=== PATIENT | female | born 1985 | race Caucasian/White ===

== ENCOUNTER 2018-03-17 10:56 | Inpatient (IN) | payer OTHER ==
[2018-03-17] MEDS ORDERED: hydrOXYzine HCl 25 MG TAB PO ONE (12:41)
[2018-03-17 12:53] LABS: Urine Appearance CLEAR; Urine Bilirubin NEGATIVE (NEG); Urine Blood NEGATIVE (NEG); Urine Color YELLOW; Urine Glucose NEGATIVE (NEG); Urine Protein NEGATIVE (NEG)
[2018-03-17] MEDS ORDERED: hydrOXYzine HCl 25 MG TAB ONE (12:55)
[2018-03-17 13:05] LABS: Urine Microscopic Reflex ORDER UMIC
[2018-03-17 13:11] LABS: Urine Bacteria <20 /HPF (<20); Urine Culture Reflex Order REFLEXED; Urine RBC <5 /HPF (NONE SEEN)
[2018-03-17] MEDS ORDERED: METHYLERGONOVINE 0.2MG/ML AMP IM PRN (14:27)
[2018-03-17] MEDS ORDERED: CARBOPROST TROME 250 MCG/ML IM PRN (14:27)
[2018-03-17] MEDS ORDERED: Ringers Lactate 1,000 ML IV PRN (14:27)
[2018-03-17] MEDS ORDERED: PENICILLIN 5 MU in NA CHLORIDE 0.9% 100 ML IV ONE (14:30)
[2018-03-17] MEDS ORDERED: PENICILLIN G POT 5 MU/100 ML BAG IV ONE (14:46)
[2018-03-17] MEDS ORDERED: OXYTOCIN/LR 20 UNIT/1,000 ML BAG IV SCH (15:00)
[2018-03-17] MEDS ORDERED: PENICILLIN G POT 5 MU/100 ML IVPB IV SCH (15:00)
[2018-03-17] MEDS ORDERED: Ringers Lactate 1,000 ML IV SCH (15:00)
[2018-03-17] MEDS ORDERED: PENICILLIN 2.5 MU in NA CHLORIDE 0.9% 100 ML IV SCH (17:00)
[2018-03-17 17:05] LABS: RPR Titer ND
[2018-03-17 17:08] LABS: Absolute Lymphocytes (CBC) 0.9 K/uL (0.7-4.9); Absolute Monocytes 0.4 K/uL (0.1-1.3); Absolute Neutrophil 4.7 K/uL (1.8-8.0); Basophils % 0.3 % (0-1.3); Eosinophils % 0.4 % (0-4.4); Hematocrit 31.8 % (36.0-45.0); Lymphocytes % 14.3 % (15.3-44.8); MCV 84.6 fL (80-100); Monocytes % 6.7 % (3.3-12.3); RBC Red Blood Cell Count 3.76 M/uL (3.86-4.86)
[2018-03-17 17:47] VITALS: BMI 20.6
[2018-03-17] MEDS ORDERED: BUTORPHANOL 1 MG/ML INJ IV PRN (19:00)
[2018-03-17] MEDS ORDERED: PROMETHAZINE 25 MG/ML VIAL IV PRN (19:01)
[2018-03-17] MEDS ORDERED: LIDOCAINE 2% INJ, 20 mL 20 ML ONE (20:48)
[2018-03-17] MEDS ORDERED: INFLUENZA VACCINE (for 3y+) 0.5 ML DOSE IMVAC ONE (21:00)
[2018-03-17] MEDS ORDERED: METHYLERGONOVINE 0.2 MG TAB PO PRN (21:13)
[2018-03-17] MEDS ORDERED: ONDANSETRON 4 MG (ODT) TAB PO PRN (21:13)
[2018-03-17] MEDS ORDERED: Oxycodone HCl/Acetaminophen 1 TAB TAB PO PRN ×2 (21:13)
[2018-03-17] MEDS ORDERED: ACETAMINOPHEN 500 MG TAB PO PRN (21:13)
[2018-03-17] MEDS ORDERED: DOCUSATE NA/SENNA CONC 1 TAB PO PRN (21:13)
[2018-03-17] MEDS ORDERED: BISACODYL 10 MG RECTAL SUPP RECT PRN (21:13)
--- NOTE | 2018-03-17 21:17 | P.OP ---
Date of Service: 03/17/18 Findings and Operative Technique Patient delivered a viable male in cephalic presentation on 03/17/18 at 20:46 over a midline episiotomy with a cord around the body x1. Once was delivered nose and mouth were suctioned with a suction bulb and cord was clamped and cut. was then placed on mother's abdomen for skin to skin bonding. Placenta was then delivered with gentle traction. Placenta was noted to be intact. Attention was turned to the midline episiotomy which was repaired with a 2.0 vicryl in usual fashion. Patient tolerated procedures well. APGARS 9/ 9. Weight 6 lb 15 oz. First stage 4 hours 53 min. Second stage 8 minutes. Both mom and baby are doing well.
[2018-03-18 01:53] LABS: RPR (Rapid Plasma Reagin) NON-REACT (NON-REACT)
--- NOTE | 2018-03-18 03:05 | HP ---
Date of Admission: 03/17/2018 History Of Present Illness: Victoria is a 32-year-old, 2, para 1-0-0-1, who presents at 38 wee ks gestation in early labor. The patient has been having contractions all night, and they have worse praveena upon presentation. She is omega every 2 to 5 minutes. The patient has no leakage of fluid , no vaginal bleeding. She reports good movement. She has obtained care with [facility] at 7 weeks gestation. care has been complicated by low weight gain during this pregna ncy and her having a low starting BMI of less than 16.5 in the first trimester. The patient has been followed with [facility] as well and had her last ultrasound performed on February 04. Ultrasound revea led cephalic presentation with the growth of 68 percentile. The patient had a group B strep swab per formed on February 26 which is GBS positive. Medical History: Negative. Past Surgical History: None. Ob History: Positive for 1 prior vaginal in 2010, female infant, 7 pounds 1 ounce. Social History: No tobacco, alcohol, or drug use. She is with the father of the baby. Physical Examination: Vital Signs: On admission, blood pressure 130/78, pulse of 65, respirations 18, temperature 98.4. P ain scale, she states her contractions are 8/10 in severity. General: The patient in bed with mild to moderate distress. Head and Neck: Normocephalic, atraumatic. Neck is supple. Respirations: Symmetric, nonlabored breathing. Cardiovascular: Regular rate and rhythm. No edema bilaterally. Abdomen: Gravid. Vaginal: Normal external female genitalia. Vagina is pink, moist. No fluid noted in the vaginal va ult. Cervical: 1 to 2 cm dilated, 50% effaced, -3 station. Vertex presentation. heart rate monito ring category 2 tracing. Baseline heart rate is 125. Killian contractions noted, irregular. GBS positive. Laboratory Data: Results are still pending. Assessment: Victoria is a 32-year-old, 2, para 1-0-0-1, at 38 weeks gestation in labor. Plan: Admit the patient. Start penicillin for GBS prophylaxis. Pitocin for labor augmentation. We will perform rupture of membranes once penicillin has been given. Anticipate vaginal . /MODL Voice ID: [id number]
[2018-03-18 05:10] LABS: Absolute Lymphocytes (CBC) 1.1 K/uL (0.7-4.9); Absolute Monocytes 0.9 K/uL (0.1-1.3); Absolute Neutrophil 9.7 K/uL (1.8-8.0); Basophils % 0.4 % (0-1.3); Eosinophils % 0.2 % (0-4.4); Hematocrit 30.1 % (36.0-45.0); Lymphocytes % 9.4 % (15.3-44.8); MCH 29.7 pg (27.0-35.0); MCV 83.8 fL (80-100); Monocytes % 7.7 % (3.3-12.3)
[2018-03-18] MEDS: IBUPROFEN 200 MG TAB PO PRN (13:45)
--- NOTE | 2018-03-18 22:40 | P.PN ---
Date of Service: 03/18/18 Patient is doing well on PP day 1 after vaginal . Bonding well with baby. No issues. Breast feeding without issues. Selected Entries 03/18/18 07:55 Temperature 98.9 F Pulse Rate 62 Respiratory 18 Rate Blood Pressure 124/75 Pain Level 0 Laboratory Tests 03/17/18 03/18/18 14:35 04:37 WBC 6.0 11.8 H D Hgb 11.3 L 10.7 L Hct 31.8 L 30.1 L Plt Count 152 171 GEN: resting comfortably in bed. Head/Neck: NCAT, supple Resp: symmetric non-labored breathing ABD: soft, non-tender, non-distended; fundus firm. 32 y/o s/p vaginal delivery, doing well, afebrile - d/c home tomorrow
[2018-03-19] MEDS ORDERED: Ringers Lactate 1,000 ML IV ONE (04:26)
[2018-03-19] MEDS: IBUPROFEN 200 MG TAB PO PRN (05:11)
[2018-03-19 10:41] VITALS: BP 121/73; TEMP 97.7
[2018-03-20 13:46] LABS: HBsAG Nonreactive (Nonreactive)
--- NOTE | 2018-03-20 23:32 | P.DS ---
Admission Date: 03/17/18 Discharge Date: 03/19/18 Disposition: ROUTINE DISCHARGE Discharge Condition: GOOD Brief History of Present Illness: See h&p Hospital Course: Patient did well in the post period. She is tolerating regular diet. She is ambulating well. No issues. No fever. No chills. Vital Signs/Physical Exam: Temp Pulse Resp BP Pulse Ox 97.7 F 82 18 121/73 03/19/18 08:10 03/19/18 08:10 03/19/18 08:10 03/19/18 08:10 General: Alert, In no apparent distress HEENT: Atraumatic Neck: Supple Respiratory: Normal air movement Cardiovascular: No edema, Normal pulses, Regular rate/rhythm Gastrointestinal: Soft and benign (Fundus firm palpable below umbilicus) Musculoskeletal: No clubbing, No swelling Integumentary: No rashes Laboratory Data at Discharge: WBC 11.8 K/uL (4.3-10.9) H D 03/18/18 04:37 Hgb 10.7 g/dL (12.0-15.0) L 03/18/18 04:37 Hct 30.1 % (36.0-45.0) L 03/18/18 04:37 Plt Count 171 K/uL (152-406) 03/18/18 04:37 Home Medications: Pnv 112/Iron/FA/Om-3S/Dha/Epa [Vitafol Gummies] 1 tab PO DAILY 03/17/18 Diet: Regular Activity: No lifting more than 10 lbs
== END 2018-03-19 10:45 | disposition home or self-care (01) | DRG 807 ==
LOC: L&D 10:56 → 2ND-WC 13:44
PROVIDERS: ADMIT Student in an Organized Health Care Education/Training Program; ATTEND Student in an Organized Health Care Education/Training Program
PROC: 10E0XZZ Delivery of Products of Conception, External Approach (ICD-10-PCS; principal; 2018-03-17)
PROC: 3E033VJ Introduction of Other Hormone into Peripheral Vein, Percutaneous Approach (ICD-10-PCS; 2018-03-17)
PROC: 10907ZC Drainage of Amniotic Fluid, Therapeutic from Products of Conception, Via Natural or Artificial Opening (ICD-10-PCS; 2018-03-17)
PROC: 0W8NXZZ Division of Female Perineum, External Approach (ICD-10-PCS; 2018-03-17)
DX: O99.824 Streptococcus B carrier state complicating childbirth (principal); Z37.0 Single live birth; Z3A.38 38 weeks gestation of pregnancy; O69.82X0 Labor and delivery complicated by other cord entanglement, without compression, not applicable or unspecified
CPT/HCPCS: 36415; 81003; 81015; 85025; 86592; 86900; 86901; 87086; 87088; 87340; 99218; J0595; J2210; J2550; J2590

== ENCOUNTER 2018-08-01 14:58 | Observation (INO) | payer OTHER, SELFPAY ==
[2018-08-01] MEDS ORDERED: ONDANSETRON 4 MG/2 ML VIAL IV PRN (15:23)
[2018-08-01] MEDS ORDERED: ACETAMINOPHEN 650MG/RECT SUPP PR PRN (15:23)
[2018-08-01] MEDS: NA CHLORIDE 0.9% 1,000 ML IV SCH ×2 (15:57→22:30)
[2018-08-01] MEDS: CEFTRIAXONE/SWI 1gm 1 GM/10 ML SYR IVP SCH (16:02)
[2018-08-01] MEDS ORDERED: PROPOFOL 200 MG/20 ML VIAL IV ONE (16:32)
[2018-08-01] MEDS ORDERED: FENTANYL CITR 100 MCG/2 ML ONE (16:32)
[2018-08-01] MEDS ORDERED: LIDOCAINE 2% MPF 5 ML VIAL ONE (16:33)
[2018-08-01] MEDS ORDERED: BSS OPTHALMIC SOL 15 ML BOT OPTH ONE (16:34)
[2018-08-01] MEDS ORDERED: Ringers Lactate 1,000 ML IV ONE (16:35)
[2018-08-01] MEDS ORDERED: KETOROLAC 30 MG/ML INJ ONE (16:51)
[2018-08-01] MEDS ORDERED: ONDANSETRON 4 MG/2 ML VIAL ONE (16:51)
--- NOTE | 2018-08-01 17:20 | RAD REPORT ---
EXAM DESCRIPTION: RAD - Urethrocystogrphy Retrograde - 08/01/2018 5:13 pm CLINICAL HISTORY: Left ureteral stent placement COMPARISON: None. FINDINGS: There were 23 images obtained during fluoroscopic assisted placement of a left ureteral stent. Images show stepwise placement of the stent. No suspicious or unexpected finding. Fluoro time was 2.7 minutes. IMPRESSION: Fluoroscopic assisted placement of left ureteral stent as detailed.
[2018-08-01 18:25] VITALS: BMI 17.9
--- NOTE | 2018-08-01 21:33 | CON ---
Subjective: This is a pleasant 33-year-old female, related to Dr. Ruiz from the ER, who went to [facility] the [facility] for left flank pain that started with one day's duration. The pain was severe enough, 10/10, brought to the emergency room. She also had been having some nausea and vomiting. At office, she got a CAT scan revealing a 5 mm distal left urolithiasis with dilation of the left collecting system. She also has a small stone noted in the midportion of the left kidney. The liver, spleen, pancreas, right kidney, and adrenal glands are all normal. Gallbladder was normal. The uterus was retroflexed, measuring 8.5 cm in length. This patient never had kidney stones before. She does not drink a lot of water and she takes vitamins. She has a young baby borned 02/2018 that is been breast fed. Past Medical History: None. Medications: None. Surgeries: None. Allergies: NONE. Social History: No smoking. No tobacco use. No IV drug use. No illicit drug use. Review of Systems: Ten point review of systems otherwise normal. Physical Examination: Vital Signs: Afebrile. Stable. General: The patient was curled up in bed, lying on her left side, trying to feel more comfortable. Her was present with her mother and her father- in-law. HEENT: Atraumatic, normocephalic. Lungs: Clear. Heart: Regular rate and rhythm. Abdomen: Soft, nontender. Extremities: Normal range of motion. Imaging Data: CT scan results, as mentioned above. Laboratory Data: Laboratory from [facility] reveals sodium 143, potassium 3.5, CO2 28, chloride 105, glucose 82, calcium 9.7, BUN 14, creatinine 0.9. LFTs normal. test is negative. UA shows specific gravity 1.030, blood large, pH 6.0, urobilinogen 0.2, leukocyte negative. CBC; white count 4.9, H and H are 13 and 36.6, platelet 330. Assessment: A 5 mm distal left ureteral stone. Plan: Plan is for cystoscopy, left retrograde pyelogram, balloon dilation of the ureter, ureteroscopy, stone basket, possible lithotripsy, stent placement. The patient was given all the general information, alternatives, and risks with the nurse present. She was not coerced. She was voluntarily giving informed consent and she understands everything that is going on. She wishes to proceed. FRANKLIN/JESUS Voice ID: [id number] Report ID: [id number] MTDD
[2018-08-01 23:07] LABS: Urine Appearance CLOUDY; Urine Bilirubin NEGATIVE (NEG); Urine Blood 3+ (NEG); Urine Color YELLOW; Urine Glucose NEGATIVE (NEG); Urine Protein 2+ (NEG); Urine Specific Gravity 1.015 (1.005-1.030); Urine Urobilinogen 0.2 mg/dL (0.2-1.0)
[2018-08-01 23:12] LABS: Urine Microscopic Reflex ORDER UMIC
[2018-08-02 00:17] LABS: Urine Bacteria <20 /HPF (<20); Urine Culture Reflex Order NOT NEEDED; Urine RBC >50 /HPF (NONE SEEN)
--- NOTE | 2018-08-02 03:35 | HP ---
Date of Admission: 08/01/2018 Chief Complaint: Direct admission from the [place] ER for kidney stone and left flank pain. History Of Present Illness: The patient is a 33-year-old female with no significant past medical his tory, who had a left lower quadrant abdominal pain along with some cramping. The patient was on her menstrual cycle and felt that this was initially due to her cycle, however, continued to have pain an d therefore came into the [place] ER for further evaluation. Upon workup at the ER, her white count wa s normal. She was found to have a 5-mm stone in the renal system and had some hydronephrosis. The priscila yin was then transferred to [facility] for further evaluation and treatment. The priscila yin's symptoms are constant, moderate, and progressively worsening. The patient denies any fevers or chills. No dysuria. Past Medical History: None. Surgical History: None. Social History: The patient denies any tobacco use or illicit drug use. The patient is , has 2 children. Family History: Mother has hypertension. Review of Systems: Ten-point system reviewed, negative except as per HPI. Physical Examination: Vital Signs: Stable. Afebrile. HEENT: Normocephalic, atraumatic. PERRLA. EOMI. General: Awake, alert, and oriented x3. No acute distress. CV: S1, S2. Regular rate and rhythm. Peripheral pulses present. Neck: Supple. No JVD. Trachea midline. Respiratory: Clear to auscultation bilaterally. No wheezing or stridor. No use of accessory muscle s. Gastrointestinal: Abdomen is soft, nontender, and nondistended. Positive bowel sounds. No guarding or rigidity. The patient does have some left flank tenderness. Extremities: No clubbing, cyanosis, or edema. No calf tenderness. Neuro: Cranial nerves 2-12 intact grossly. No focal neurologic deficits. Speech is normal. Skin: No rashes. Normal skin turgor. Laboratory Data: Labs from [place] [facility]; WBC 4.9. Urine test is negative. Electrolytes stabl e. CT scan shows a 5 mm ureteral stone. Assessment And Plan: A 33-year-old female with: 1.Left kidney stone. We will start on IV fluids, IV antibiotics. Dr. Herrera is taking the patient f or stent placement. 2.DVT prophylaxis with SCDs. No chemical anticoagulation due to procedure. Admit the patient to Med-Surg, place as observation. We will likely discharge once cleared by Urolog y. Start on IV fluids and IV antibiotics. Follow up on urine cultures. NESSA Voice ID: [id number]
--- NOTE | 2018-08-02 04:14 | OP ---
Surgeon: Bill Herrera MD Anesthesiologist: Dr. Donis. Preoperative Diagnosis: 5 mm left distal stone. Postoperative Diagnoses: 5 mm left distal stone and a coil in the left proximal ureter. Procedure Performed: Cystoscopy, left retrograde pyelogram, balloon dilation of left distal ureter, semi-rigid ureteroscopy, stone basket and removal, and insertion of double-J stent, 6-Mozambican x 28 cm. String left attached in the vagina. Anesthesia: General anesthesia. Ebl: Minimal. Findings: stone in left distal ureter and coil in Left proximal ureter below UPJ Replacement: See record. Pathology Specimen: Stone for ID. Complications: None. Drains: As above. Indications: A 33-year-old lady came in with intractable pain, nausea, vomiting , and with the above diagnosis, all the general information and risks were given to her. She decided to have the procedure perform. All family members were present in the room at that time. Description Of Procedure: She was properly identified, taken to the operative suite. She received Rocephin IV on-call. She was placed in a supine lithotomy position. After general anesthesia was administered, the area was prepped and draped. We entered the bladder with a 21-Mozambican obturator cystoscope. Bladder was scanned. No abnormalities were found. Both orifices were in their normal anatomical position. The trigone was normal. Retrograde was performed showing a filling defect in the left distal ureter. A guidewire was placed. The balloon dilation was performed of the left distal ureter, 12-Mozambican by 4 cm balloon. A semi-rigid ureteroscopy was performed. Stone was seen, grasped with a basket, and removed entirely. Repeat ureteroscopy was performed up to the proximal left ureter showing pristine clear ureter and no further obstruction, no further stones. We then did a retrograde pyelogram showing some type of obstruction at the UPJ. It turned out to be a coil in the ureter. We use a Glidewire to navigate this area and get across and then exchanged it for a Bentson wire in the standard fashion and went ahead and placed the stent as mentioned above. The bladder was drained. The patient went to recovery room in stable condition. The string was cut and placed into the vagina. PB/MODL Voice ID: [id number] Report ID: [id number]
[2018-08-02 06:06] LABS: Albumin 2.9 g/dL (3.4-5.0); Bilirubin Total 0.5 mg/dL (0.2-1.0); Potassium 3.6 mmol/L (3.5-5.1)
[2018-08-02 06:10] LABS: Absolute Lymphocytes (CBC) 1.1 K/uL (0.7-4.9); Absolute Monocytes 0.5 K/uL (0.1-1.3); Basophils % 0.5 % (0-1.3); Eosinophils % 1.5 % (0-4.4); Hematocrit 32.4 % (36.0-45.0); Lymphocytes % 23.8 % (15.3-44.8); MPV 7.7 fL (7.6-11.3); Monocytes % 10.2 % (3.3-12.3); RBC Red Blood Cell Count 4.06 M/uL (3.86-4.86)
[2018-08-02] MEDS ORDERED: POTASSIUM CL SA 10 MEQ TAB PO ONE (06:17)
[2018-08-02] MEDS: NA CHLORIDE 0.9% 1,000 ML IV SCH (06:24)
[2018-08-02] MEDS: CEFTRIAXONE/SWI 1gm 1 GM/10 ML SYR IVP SCH (08:51)
[2018-08-02 12:28] VITALS: BP 110/64; TEMP 98.9
--- NOTE | 2018-08-02 13:11 | P.DS ---
Admission Date: 08/01/18 Discharge Date: 08/02/18 Disposition: ROUTINE DISCHARGE Discharge Condition: GOOD Reason for Admission: Left-sided nephrolithiasis Consultations: Urology Procedures: ESWL - Problems (1) Nephrolithiasis Current Visit: Yes Status: Acute Brief History of Present Illness: : The patient is a 33-year-old female with no significant past medical history , who had a left lower quadrant abdominal pain along with some cramping. The patient was on her menstrual cycle and felt that this was initially due to her cycle, however, continued to have pain and therefore came into the [place] ER for further evaluation. Upon workup at the ER, her white count was normal. She was found to have a 5-mm stone in the renal system and had some hydronephrosis. The patient was then transferred to [facility] for further evaluation and treatment. The patient's symptoms are constant, moderate, and progressively worsening. The patient denies any fevers or chills. No dysuria. Hospital Course: Overall during the hospital stay patient remained stable Patient was initially admitted to the hospital directly from urology office for left-sided nephrolithiasis. Patient had a lithotripsy done here in the hospital with stent placement. Patient had marked improvement in her symptoms. Patient thus was discharged home under stable condition after the procedure and was asked to follow up with urology in about 1-2 days post discharge. Patient was given prescription for pain medication along with antibiotics prophylactically. Patient demonstrate understanding and thus was discharged home under stable condition. Vital Signs/Physical Exam: Temp Pulse Resp BP Pulse Ox 98.9 F 62 16 110/64 100 08/02/18 12:00 08/02/18 12:00 08/02/18 12:00 08/02/18 12:00 08/02/18 12:00 Laboratory Data at Discharge: WBC 4.7 K/uL (4.3-10.9) 08/02/18 05:21 Hgb 10.9 g/dL (12.0-15.0) L 08/02/18 05:21 Hct 32.4 % (36.0-45.0) L 08/02/18 05:21 Plt Count 247 K/uL (152-406) 08/02/18 05:21 Sodium 142 mmol/L (136-145) 08/02/18 05:21 Potassium 3.6 mmol/L (3.5-5.1) 08/02/18 05:21 BUN 10 mg/dL (7-18) 08/02/18 05:21 Creatinine 0.79 mg/dL (0.55-1.3) 08/02/18 05:21 Glucose 74 mg/dL (74-106) 08/02/18 05:21 Total Bilirubin 0.5 mg/dL (0.2-1.0) 08/02/18 05:21 AST 16 U/L (15-37) 08/02/18 05:21 ALT 14 U/L (12-78) 08/02/18 05:21 Alkaline Phosphatase 72 U/L (45-117) 08/02/18 05:21 Home Medications: Cephalexin [Keflex] 500 mg PO DAILY #7 cap 08/02/18 Tramadol HCl [Ultram] 50 mg PO Q6HP PRN #15 tablet 08/02/18 New Medications: Tramadol HCl [Ultram] 50 mg PO Q6HP PRN #15 tablet PRN Reason: Pain Scale 5-7 (Moderate) Cephalexin [Keflex] 500 mg PO DAILY #7 cap Followup: Bill Herrera MD [ACTIVE - CAN ADMIT] - 1 Week (Call to schedule an appointment) Ranjan Wynne MD [Primary Care Provider] -
[2018-08-02 13:14] VITALS: O2SAT 100
== END 2018-08-02 13:30 | disposition home or self-care (01) ==
LOC: 4TH 15:05
PROVIDERS: ADMIT Family Medicine; ATTEND Family Medicine
PROC: 0T778DZ Dilation of Left Ureter with Intraluminal Device, Via Natural or Artificial Opening Endoscopic (ICD-10-PCS; 2018-08-01)
PROC: 0WHR8YZ Insertion of Other Device into Genitourinary Tract, Via Natural or Artificial Opening Endoscopic (ICD-10-PCS; 2018-08-01)
PROC: 0TC78ZZ Extirpation of Matter from Left Ureter, Via Natural or Artificial Opening Endoscopic (ICD-10-PCS; principal; 2018-08-01 17:15)
DX: N13.2 Hydronephrosis with renal and ureteral calculous obstruction (principal)
CPT/HCPCS: 36415; 51610; 74450; 80053; 81003; 81015; 82360; 85025; 87086; 87088; 88300; 94760; G0378; J0696; J2405; J2704; J3010; J7030; Q9967

== ENCOUNTER 2018-08-03 16:11 | Observation (INO) | payer OTHER ==
[2018-08-03] MEDS ORDERED: KETOROLAC 30 MG/ML INJ ONE ×2 (16:52→20:33)
[2018-08-03] MEDS ORDERED: MORPHINE 4 MG/ML SYR ONE (16:52)
[2018-08-03] MEDS ORDERED: ONDANSETRON 4 MG/2 ML VIAL ONE ×2 (16:52→20:32)
[2018-08-03] MEDS ORDERED: NA CHLORIDE 0.9% 1,000 ML ONE (16:52)
[2018-08-03 17:05] LABS: Absolute Lymphocytes (CBC) 1.1 K/uL (0.7-4.9); Absolute Monocytes 0.6 K/uL (0.1-1.3); Basophils % 0.7 % (0-1.3); Eosinophils % 0.6 % (0-4.4); Lymphocytes % 15.8 % (15.3-44.8); MPV 7.4 fL (7.6-11.3); Monocytes % 8.3 % (3.3-12.3); RBC Red Blood Cell Count 4.49 M/uL (3.86-4.86)
[2018-08-03 17:16] LABS: Potassium 3.6 mmol/L (3.5-5.1)
[2018-08-03 18:03] LABS: Urine Bacteria 20-50 /HPF (<20); Urine Culture Reflex Order REFLEXED; Urine RBC LOADED /HPF (NONE SEEN)
--- NOTE | 2018-08-03 18:32 | RAD REPORT ---
EXAM DESCRIPTION: RAD - Urograph (IVP) - 08/03/2018 6:23 pm CLINICAL HISTORY: Abd pain;Flank pain Flank pain, hematuria COMPARISON: No comparisons FINDINGS: The command and control systems integrator images demonstrate a nonobstructive bowel-gas pattern. No evidence of a calcu vishal detected. Following the uneventful administration of IV contrast, sequential images of the abdomen were obtaine d over 15 minutes and including a postvoid radiograph. There is moderate left hydronephrosis and hydroureter present. The distal 2-3 cm of the left ureter i s normal in caliber. No significant right-sided obstructive uropathy. Significant delay in excretion of contrast from the left to the bladder is seen. No bladder abnormality seen. No fluoroscopy was performed. Nine images were obtained. IMPRESSION: Moderate left-sided hydronephrosis and hydroureter is seen. Abrupt caliber change of the ureter is seen in the pelvis with the distal 2-3 cm of the left ureter demonstrating a normal calibe r. This likely indicates the presence of a stricture in this location. No radiopaque calculus is i dentified.
[2018-08-03] MEDS ORDERED: CEFTRIAXONE/SWI 1gm 1 GM/10 ML SYR ONE (18:50)
[2018-08-03] MEDS ORDERED: TAMSULOSIN 0.4 MG SR CAP ONE (19:18)
--- NOTE | 2018-08-03 19:46 | EDPHYS ---
Physician Documentation [facility] Name: Victoria Valentine Age: 33 yrs Sex: Female : 1985 Arrival Date: 08/03/2018 Time: 16:12 Bed 7 Private MD: Ranjan Wynne R ED Physician John Ruiz HPI: 08/03 16:42 This 33 yrs old Female presents to ER via Ambulatory with complaints of Flank kb Pain. 16:42 The patient complains of pain in the left flank. The pain radiates to the left lower kb quadrant. Onset: The symptoms/episode began/occurred today. Modifying factors: The symptoms are alleviated by nothing. the symptoms are aggravated by movement, palpation/percussion. Associated signs and symptoms: The patient has no apparent associated signs or symptoms. Severity of pain: At its worst the pain was severe in the emergency department the pain is unchanged. The patient has not experienced similar symptoms in the past. The patient has been recently been admitted at [facility], was discharged yesterday. Pt reports she had a kidney stone removed on Saturday and a stent placed. Was discharged yesterday. Today pt was having a lot of pain so she was told to remove stent by Dr Herrera. Pt reports pain has increased since stent removed. Pain is in left flank and left lower quadrant of abd. . 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 - Social history:: Smoking status: Patient/guardian denies using tobacco. - Ebola Screening: : No symptoms or risks identified at this time. ROS: 16:41 Constitutional: Negative for fever, chills, and weight loss, Cardiovascular: Negative kb for chest pain, palpitations, and edema, Respiratory: Negative for shortness of breath, cough, wheezing, and pleuritic chest pain, MS/Extremity: Negative for injury and deformity, Skin: Negative for injury, rash, and discoloration, Neuro: Negative for headache, weakness, numbness, tingling, and seizure. 16:41 Abdomen/GI: Positive for abdominal pain, Negative for nausea, vomiting, and diarrhea. 16:41 Back: Positive for flank pain, on the left. 16:41 : Positive for flank pain, hematuria. Exam: 16:41 Constitutional: This is a well developed, well nourished patient who is awake, alert, kb and in no acute distress. Head/Face: Normocephalic, atraumatic. Chest/axilla: Normal chest wall appearance and motion. Nontender with no deformity. No lesions are appreciated. Cardiovascular: Regular rate and rhythm with a normal S1 and S2. No gallops, murmurs, or rubs. Normal PMI, no JVD. No pulse deficits. Respiratory: Lungs have equal breath sounds bilaterally, clear to auscultation and percussion. No rales, rhonchi or wheezes noted. No increased work of breathing, no retractions or nasal flaring. Back: No spinal tenderness. No costovertebral tenderness. Full range of motion. Skin: Warm, dry with normal turgor. Normal color with no rashes, no lesions, and no evidence of cellulitis. MS/ Extremity: Pulses equal, no cyanosis. Neurovascular intact. Full, normal range of motion. Neuro: Awake and alert, GCS 15, oriented to person, place, time, and situation. Cranial nerves II-XII grossly intact. Motor strength 5/5 in all extremities. Sensory grossly intact. Cerebellar exam normal. Normal gait. 16:41 Abdomen/GI: Inspection: abdomen appears normal, Bowel sounds: normal, in all quadrants, Palpation: soft, in all quadrants, moderate abdominal tenderness, in the left lower quadrant. Vital Signs: 16:26 BP 144 / 103; Pulse 85; Resp 18; Temp 97.9; Pulse Ox 99% on R/A; Weight 45.36 kg; ph Height 5 ft. 6 in. (167.64 cm); Pain 10/10; 17:35 BP 126 / 84; Pulse 75; Resp 16; Temp 98.9; Pulse Ox 99% on R/A; Pain 5/10; ch 19:17 BP 132 / 93; Pulse 69; Resp 16; Pulse Ox 100% on R/A; lp1 20:25 BP 130 / 82; Pulse 70; Resp 16; Pulse Ox 99% on R/A; lp1 16:26 Body Mass Index 16.14 (45.36 kg, 167.64 cm) ph MDM: 16:29 Patient medically screened. kb 16:42 Data reviewed: vital signs, nurses notes. Data interpreted: Pulse oximetry: on room air kb is 99 %. Interpretation: normal. 08/03 16:37 Order name: CBC with Diff; Complete Time: 17:10 kb 08/03 16:37 Order name: Basic Metabolic Panel; Complete Time: 17:21 kb 08/03 16:37 Order name: Urine Microscopic Only; Complete Time: 18:40 kb 08/03 17:16 Order name: Urine --Ancillary (enter results); Complete Time: 16:00 kb 08/03 17:16 Order name: Urine Dipstick--Ancillary (enter results); Complete Time: 16:00 kb 08/03 17:56 Order name: Urine Culture [facility] 08/03 16:37 Order name: IVP Urograph; Complete Time: 18:40 kb 08/03 19:42 Order name: CONS Physician Consult EDGA 08/03 16:37 Order name: IV Start; Complete Time: 17:02 kb 08/03 16:37 Order name: Urine Dipstick-Ancillary (obtain specimen); Complete Time: 17:37 kb 08/03 19:33 Order name: NPO; Complete Time: 19:33 [facility] Administered Medications: 17:01 Drug: morphine 4 mg Route: IVP; Site: right antecubital; ch 17:36 Follow up: Response: No adverse reaction ch 17:01 Drug: TORadol 30 mg Route: IVP; Site: right antecubital; ch 17:36 Follow up: Response: No adverse reaction; Pain is decreased ch 17:01 Drug: Zofran 4 mg Route: IVP; Site: right antecubital; ch 17:36 Follow up: Response: No adverse reaction; Pain is decreased ch 17:01 Drug: NS 0.9% 1000 ml Route: IV; Rate: 1000 ml; Site: right antecubital; ch 17:36 Follow up: IV Status: Completed infusion; IV Intake: 1000ml ch 18:36 Drug: Rocephin - (cefTRIAXone) 1 grams Route: IVPB; Infused Over: 30 mins; Site: right ch antecubital; 19:15 Follow up: IV Status: Completed infusion lp1 19:15 Drug: Flomax 0.4 mg Route: PO; lp1 20:27 Follow up: Response: No adverse reaction lp1 Disposition: 19:45 Co-signature as Attending Physician, Nahum Yin MD I agree with the assessment and ladonna plan of care. Disposition: 08/03/18 19:45 Hospitalization ordered by Nahum Yin for Observation. Preliminary diagnosis is Hydronephrosis with ureteral stricture, not elsewhere classified. - Bed requested for Telemetry/MedSurg (observation). - Status is Observation. lp1 - Condition is Stable. - Problem is new. - Symptoms have improved. UTI on Admission? No Signatures: Dispatcher [employer] EDMS Gabbi Cole, WAX POT TENDER-C WAX POT TENDER-Ckb Christine Bains, RN RN John Ruiz MD MD cha Pena, Laura RN RN lp1 Inez Pierce RN RN Sonja Pérez Corrections: (The following items were deleted from the chart) 20:15 19:45 Hospitalization Ordered by Nahum Yin MD for Observation. Preliminary eb diagnosis is Hydronephrosis with ureteral stricture, not elsewhere classified. Bed requested for Telemetry/MedSurg (observation). Status is Observation. Condition is Stable. Problem is new. Symptoms have improved. UTI on Admission? No. ladonna 20:28 20:15 08/03/2018 19:45 Hospitalization Ordered by Nahum Yin MD for Observation. lp1 Preliminary diagnosis is Hydronephrosis with ureteral stricture, not elsewhere classified. Bed requested for Telemetry/MedSurg (observation). Status is Observation. Condition is Stable. Problem is new. Symptoms have improved. UTI on Admission? No. eb
--- NOTE | 2018-08-03 19:46 | ER ---
Nurse's Notes [facility] Name: Victoria Valentine Age: 33 yrs Sex: Female : 1985 Arrival Date: 08/03/2018 Time: 16:12 Bed 7 Private MD: Ranjan Wynne R Diagnosis: Hydronephrosis with ureteral stricture, not elsewhere classified Presentation: 08/03 16:23 Presenting complaint: Patient states: Had procedure to remove kidney stone from L ph kidney on Saturday, stent placed, pt states, " The stent started coming out today and I called Dr Herrera and he said to pull it out so I did and now the pain is worse." Pt reports L flank pain, hematuria, N/'V. Transition of care: patient was not received from another setting of care. Onset of symptoms was August 03, 2018. Risk Assessment: Do you want to hurt yourself or someone else? Patient reports no desire to harm self or others. Initial Sepsis Screen: Does the patient meet any 2 criteria? No. Patient's initial sepsis screen is negative. Does the patient have a suspected source of infection? No. Patient's initial sepsis screen is negative. Care prior to arrival: None. 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 - Social history:: Smoking status: Patient/guardian denies using tobacco. - Ebola Screening: : No symptoms or risks identified at this time. Screenin:17 Abuse screen: Denies threats or abuse. Denies injuries from another. Nutritional lp1 screening: No deficits noted. Tuberculosis screening: No symptoms or risk factors identified. Fall Risk None identified. Assessment: 16:50 General: Appears in no apparent distress. uncomfortable, Behavior is calm, cooperative, ch appropriate for age. Pain: Denies pain. Complains of pain in back and abdomen and left flank and left lower quadrant Pain currently is 5 out of 10 on a pain scale. Neuro: No deficits noted. Respiratory: Airway is patent Respiratory effort is even, unlabored, Breath sounds are clear. GI: Abdomen is round Bowel sounds present X 4 quads. Abd is soft and non tender X 4 quads. : Reports pain urinary frequency, blood in urine. Derm: Skin is pink, warm \\T\\ dry. Musculoskeletal: Circulation, motion, and sensation intact. Capillary refill < 3 seconds, Range of motion: intact in all extremities. 19:16 Reassessment: Patient states feeling better. Reassessment: Patient states symptoms have lp1 improved. Pain: Complains of pain in left inguinal area. Neuro: Level of Consciousness is awake, alert, obeys commands. Cardiovascular: Patient's skin is warm and dry. Respiratory: Respiratory effort is even, unlabored. 19:33 Reassessment: Patient updated on NPO status. lp1 20:23 Reassessment: Report given to SMILEY Esparza for patient to Pre-op. lp1 Vital Signs: 16:26 BP 144 / 103; Pulse 85; Resp 18; Temp 97.9; Pulse Ox 99% on R/A; Weight 45.36 kg; ph Height 5 ft. 6 in. (167.64 cm); Pain 10/10; 17:35 BP 126 / 84; Pulse 75; Resp 16; Temp 98.9; Pulse Ox 99% on R/A; Pain 5/10; ch 19:17 BP 132 / 93; Pulse 69; Resp 16; Pulse Ox 100% on R/A; lp1 20:25 BP 130 / 82; Pulse 70; Resp 16; Pulse Ox 99% on R/A; lp1 16:26 Body Mass Index 16.14 (45.36 kg, 167.64 cm) ph ED Course: 16:12 Patient arrived in ED. as 16:12 Ranjan Wynne MD is Private Physician. as 16:23 Gabbi Cole FNP-C is PHCP. kb 16:23 John Ruiz MD is Attending Physician. kb 16:25 Triage completed. ph 16:27 Arm band placed on. ph 16:28 Gabbi Cole FNP-C is PHCP. kb 16:28 John Ruiz MD is Attending Physician. kb 16:39 Christine Bains, SMILEY is Primary Nurse. ch 17:02 Inserted saline lock: 20 gauge in right antecubital area, using aseptic technique. ch 18:00 Warm blanket given. ch 18:23 IVP Urograph In Process Unspecified. EDMS 19:00 Report given to Bella. ch 19:17 Patient has correct armband on for positive identification. Placed in gown. Pulse ox lp1 on. NIBP on. 19:18 No provider procedures requiring assistance completed. lp1 19:35 Ranjan Wynne MD is Hospitalizing Provider. ladonna 19:45 Nahum Yin MD is Hospitalizing Provider. ladonna 20:26 Patient admitted, IV remains in place. lp1 Administered Medications: 17:01 Drug: morphine 4 mg Route: IVP; Site: right antecubital; ch 17:36 Follow up: Response: No adverse reaction ch 17:01 Drug: TORadol 30 mg Route: IVP; Site: right antecubital; ch 17:36 Follow up: Response: No adverse reaction; Pain is decreased ch 17:01 Drug: Zofran 4 mg Route: IVP; Site: right antecubital; ch 17:36 Follow up: Response: No adverse reaction; Pain is decreased 17:01 Drug: NS 0.9% 1000 ml Route: IV; Rate: 1000 ml; Site: right antecubital; ch 17:36 Follow up: IV Status: Completed infusion; IV Intake: 1000ml ch 18:36 Drug: Rocephin - (cefTRIAXone) 1 grams Route: IVPB; Infused Over: 30 mins; Site: right ch antecubital; 19:15 Follow up: IV Status: Completed infusion lp1 19:15 Drug: Flomax 0.4 mg Route: PO; lp1 20:27 Follow up: Response: No adverse reaction lp1 Intake: 17:36 IV: 1000ml; Total: 1000ml. Outcome: 19:45 Decision to Hospitalize by Provider. [facility] 20:26 Admitted to OR accompanied by nurse, via wheelchair, Report called to SMILEY Esparza lp1 20:26 Condition: stable 20:26 Instructed on the need for admit. 20:28 Patient left the ED. lp1 Signatures: Dispatcher [employer] EDMS Gabbi Cole, ADMISSION DISCHARGE RN-C ADMISSION DISCHARGE RN-Christine Diggs RN RN John Ruiz MD MD cha Martinez, Amelia as Pena, Laura RN RN lp1 Inez Pierce RN RN
[2018-08-03 20:09] LABS: Urine Blood 3+ (NEG); Urine Glucose NEGATIVE (NEG); Urine Protein 2+ (NEG)
[2018-08-03] MEDS ORDERED: LIDOCAINE 1% MPF 5 ML VIAL ONE (20:32)
[2018-08-03] MEDS ORDERED: FENTANYL CITR 100 MCG/2 ML ONE (20:32)
[2018-08-03] MEDS ORDERED: PROPOFOL 200 MG/20 ML VIAL IV ONE (20:32)
[2018-08-03] MEDS ORDERED: MIDAZOLAM HCL 2 MG/2 ML INJ ONE (20:32)
[2018-08-03] MEDS ORDERED: NA CHLORIDE 0.9% 1,000 ML IV SCH (20:36)
[2018-08-03] MEDS ORDERED: ACETAMINOPHEN 500 MG TAB PO PRN (20:36)
[2018-08-03] MEDS ORDERED: ONDANSETRON 4 MG/2 ML VIAL IV PRN (20:36)
[2018-08-03] MEDS ORDERED: MORPHINE 4 MG/ML SYR IV PRN (20:36)
[2018-08-03] MEDS ORDERED: Ringers Lactate 1,000 ML IV ONE (20:41)
[2018-08-03 21:32] VITALS: O2SAT 97
--- NOTE | 2018-08-03 21:39 | RAD REPORT ---
EXAM DESCRIPTION: RAD - Urethrocystogrphy Retrograde - 08/03/2018 9:02 pm CLINICAL HISTORY: LEFT STENT PLACEMENT COMPARISON: Urethrocystogrphy Retrograde dated 08/01/2018 FINDINGS: Fluoroscopic imaging of the abdomen from left-sided ureteral stent procedure submitted. De tails of the procedure not available. Total fluoro time: 26 seconds.
[2018-08-03 21:53] VITALS: BP 111/77; TEMP 96.9
--- NOTE | 2018-08-04 01:06 | CON ---
History Of Present Illness: A 33-year-old female who just had a ureteroscopy and stone extraction and stent placement about 2 days ago. She went home 1 day ago. Today, she called as a pad got caught on the string that was in the vagina and she yanked on it and she was feeling the coil of the stent. Then she texted back Dr. Ruiz that she is just leaking urine all over. So I went ahead and told her to just pull the entire stent out. Since then, she has been having left flank pain, severe pain to the fact that she came to the emergency room and I was called again, told them to do an IVP. The IVP showed a high-grade obstruction on the left lower ureter with a concentric narrowing. Therefore, she is going to need a stent placement for couple weeks. Past Medical History: Last menstrual period 07/16/2018. Allergies: NONE. Home Medications: None. Past Medical History: None. Past Surgical History: As mentioned above, cysto ureteroscopy. Immunizations: Up-to-date. Review of Systems: Ten-point review is otherwise negative. Physical Examination: Vital Signs: BP_, pulse 69, respirations 20, sats 100% on room air, her weight is 45.36 kg, height 167.6 cm. HEENT: Atraumatic, normocephalic. Chest: Clear. Abdomen: Soft, nontender. Extremities: Normal range of motion. Laboratory Data: White count 6.7, H and H 12 and 36, platelet count 245. Chemistry: Sodium 141, potassium 3.6, chloride 107, carbon dioxide 26, BUN 13, creatinine 0.80, GFR 83, glucose 76. Urine study shows pH 6.0, ketones 2+, blood 3+, nitrite negative, esterase pending. Assessment: Status post stent accidentally removed after ureteroscopy postop day 2 with high-grade obstruction due to edema in the left lower ureter. She will need a cystoscopy and stent placement. She is to keep the stent in for at least 2 weeks until all the edema recedes. All the general information, alternatives, risks were given to her. She was not coerced and she was coherent. FRANKLIN/JESUS Voice ID: [id number] Report ID: [id number] CATHY
--- NOTE | 2018-08-04 07:45 | OP ---
Surgeon: Bill Herrera MD Anesthesiologist: Dr. Burns. Preoperative Diagnosis: Left obstructed distal ureter due to premature stent accidental removal. Postoperative Diagnosis: Left obstructed distal ureter due to premature stent accidental removal. Procedure Performed: Cystoscopy, left retrograde pyelogram, re-insertion of double-J stent, 6-Nicaraguan x 26 cm at this time, string left inside the bladder at this time. Anesthesia: General anesthesia. Complications: None. Drains: As above. Indications: A pleasant 33-year-old female, who had a ureteroscopy stone extraction, but she acciden kendra pulled her stent out on postop day 2. She was obstructed and having pain. Confirmation was ma vikas by IVP showing distal obstruction. She needed a stent replaced. She was given all the general in formation, alternatives, and risks. She was coarse. She understood all the information, and gave vo luntary consent. She was taken to the operative room, placed in a supine lithotomy position. She re ceived perioperative antibiotics earlier. The area was prepped and draped. We entered the bladder w ith a 21-Nicaraguan scope and 30-degree lens. Orifices were found, cannulated, and appeared edematous, a nd small blood clots inside. Retrograde pyelogram was done showing some swelling, edematous, in the left distal ureter. I went ahead and passed a wire up to the renal pelvis, measured the length of th e ureter, about 26 cm, went ahead and placed the 6-Nicaraguan x 26 cm stent in standard fashion. We cut this down from 28 cm due to the curlicue ureter she had, was then straightened out. Plan is to leave this stent in for about 2 weeks. The string was left attached to a small short string left inside t he bladder at this time. She will go home in the morning when she is stable. Follow up with me in 2 weeks. PB/JYOTIL Voice ID: [id number] Report ID: [id number]
[2018-08-04] MEDS ORDERED: TAMSULOSIN 0.4 MG SR CAP PO SCH (09:00)
[2018-08-04] MEDS ORDERED: CEFTRIAXONE 1 GM/NS 50 ML 1 GM/50 ML BAG IV SCH (09:00)
== END 2018-08-03 23:02 | disposition home or self-care (01) ==
LOC: ER 16:11 → ERHOLD 19:39 → 2ND 21:28
PROVIDERS: ADMIT Internal Medicine; ATTEND Internal Medicine
PROC: 0T778DZ Dilation of Left Ureter with Intraluminal Device, Via Natural or Artificial Opening Endoscopic (ICD-10-PCS; principal; 2018-08-03 20:45)
DX: N13.1 Hydronephrosis with ureteral stricture, not elsewhere classified (principal); Z87.442 Personal history of urinary calculi
CPT/HCPCS: 36415; 51610; 74400; 74450; 80048; 81003; 81015; 81025; 85025; 87086; 87088; 96361; 96365; 96375; 99285; G0378; J0696; J2250; J2405; J2704; J3010; J7030; Q9967

== ENCOUNTER 2018-10-28 10:25 | Emergency (ER) | payer OTHER ==
[2018-10-28] MEDS ORDERED: NA CHLORIDE 0.9% 1,000 ML ONE (11:04)
[2018-10-28 11:16] LABS: Absolute Monocytes 0.3 K/uL (0.1-1.3); Absolute Neutrophil 2.3 K/uL (1.8-8.0); Basophils % 0.8 % (0-1.3); Eosinophils % 0.9 % (0-4.4); Hematocrit 39.7 % (36.0-45.0); Lymphocytes % 26.9 % (15.3-44.8); MPV 8.4 fL (7.6-11.3); Monocytes % 9.4 % (3.3-12.3); RBC Red Blood Cell Count 4.94 M/uL (3.86-4.86)
[2018-10-28 11:35] LABS: Potassium 3.4 mmol/L (3.5-5.1)
--- NOTE | 2018-10-28 11:38 | RAD REPORT ---
EXAM DESCRIPTION: US - Transvaginal OB - 10/28/2018 11:23 am CLINICAL HISTORY: ABD CRAMPING, COMPARISON: OBSTETRICAL COMPLETE dated 03/15/2011 FINDINGS: The uterus measures 8.0 x 7.7 x 5.1 cm. Endometrium is thickened to 13 mm with 2 tiny cyst ic areas present in the endometrial canal. There is no evidence of a yolk sac, embryo or other components present. The cystic lesions are very small and nonspecific, with very early gestational sacs remain a possibility. The maternal adnexa and ovaries are within normal limits. Normal Doppler blood flow was demonstrated to both ovaries. IMPRESSION: Tiny cystic structures are present in a thickened endometrium. This is a nonspecific fin ding and could indicate early IUP/gestational sacs. Correlation with HCG levels and follow-up ultraso und in 7-10 days is recommended.
--- NOTE | 2018-10-28 11:46 | ER ---
Nurse's Notes [facility] Name: Victoria Valentine Age: 33 yrs Sex: Female : 1985 Arrival Date: 10/28/2018 Time: 10:28 Bed 8 Private MD: Diagnosis: Threatened ;Hypokalemia Presentation: 10/28 10:37 Presenting complaint: Patient states: Approx 8 weeks , had vaginal spotting ph last night and this morning, also reports mid back pain, denies abdominal pain or urinary symptoms. Transition of care: patient was not received from another setting of care. Onset of symptoms was October 28, 2018. Risk Assessment: Do you want to hurt yourself or someone else? Patient reports no desire to harm self or others. Initial Sepsis Screen: Does the patient meet any 2 criteria? No. Patient's initial sepsis screen is negative. Does the patient have a suspected source of infection? No. Patient's initial sepsis screen is negative. Care prior to arrival: None. 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 - Social history:: Smoking status: Patient/guardian denies using tobacco. - Ebola Screening: : No symptoms or risks identified at this time. - Family history:: not pertinent. Screenin:40 Abuse screen: Denies threats or abuse. Denies injuries from another. Nutritional ph screening: No deficits noted. Tuberculosis screening: No symptoms or risk factors identified. Fall Risk None identified. Assessment: 10:41 General: Appears in no apparent distress. comfortable, slender, well groomed, Behavior ph is calm, cooperative, appropriate for age, Denies fever, feeling ill. Pain: Complains of pain in right mid back. Neuro: Level of Consciousness is awake, alert, obeys commands, Oriented to person, place, time, situation. Cardiovascular: Capillary refill < 3 seconds in bilateral fingers Patient's skin is warm and dry. Respiratory: Airway is patent Respiratory effort is even, unlabored, Respiratory pattern is regular, symmetrical. GI: No signs and/or symptoms were reported involving the gastrointestinal system. Patient currently denies abdominal pain, nausea, vomiting. : Reports pain in right in lower back vaginal bleeding that is Denies burning with urination, pain in suprapubic area urinary frequency. Derm: Skin is intact, is healthy with good turgor, Skin is pink, warm \T\ dry. Musculoskeletal: Circulation, motion, and sensation intact. Range of motion:. 11:05 Reassessment: Patient appears in no apparent distress at this time. Patient is alert, ph oriented x 3, equal unlabored respirations, skin warm/dry/pink. Pt taken for US via wheelchair, family remains at bedside. 12:00 Reassessment: Patient appears in no apparent distress at this time. Patient and/or ph family updated on plan of care and expected duration. Pain level reassessed. Patient is alert, oriented x 3, equal unlabored respirations, skin warm/dry/pink. Vital Signs: 10:39 BP 126 / 85; Pulse 64; Resp 18; Temp 98.5; Pulse Ox 100% on R/A; Weight 40.82 kg; ph Height 5 ft. 6 in. (167.64 cm); 11:35 BP 118 / 78; Pulse 62; Resp 18; Temp 97.8; Pulse Ox 99% on R/A; Pain 0/10; ph 10:39 Body Mass Index 14.53 (40.82 kg, 167.64 cm) ph ED Course: 10:28 Patient arrived in ED. iw 10:28 John Ruiz MD is Attending Physician. iw 10:37 Inez Pierce, SMILEY is Primary Nurse. ph 10:39 Triage completed. ph 10:40 Arm band placed on Patient placed in an exam room, on a stretcher, on pulse oximetry. ph 10:41 Patient has correct armband on for positive identification. Placed in gown. Bed in low ph position. Call light in reach. Side rails up X 1. Pulse ox on. NIBP on. Door closed. Noise minimized. Warm blanket given. Head of bed elevated. 11:00 Initial lab(s) drawn, by nv, sent to lab. Urine collected: clean catch specimen, clear. ph Inserted saline lock: 20 gauge in right antecubital area, using aseptic technique. Blood collected. 11:21 US Transvaginal Ob In Process Unspecified. EDMS 11:27 Ultrasound completed. hr 11:46 Valentina Resendiz MD is Referral Physician. [facility] 12:07 No provider procedures requiring assistance completed. IV discontinued, intact, iw bleeding controlled, No redness/swelling at site. Pressure dressing applied. Administered Medications: 11:00 Drug: NS 0.9% 1000 ml Route: IV; Rate: 1 bolus; Site: right antecubital; ph 12:00 Follow up: Response: No adverse reaction; IV Status: Completed infusion ph Outcome: :46 Discharge ordered by . [facility] 12:07 Discharged to home ambulatory, with family. iw 12:07 Condition: good 12:07 Discharge instructions given to family, Instructed on discharge instructions, follow up and referral plans. medication usage, Demonstrated understanding of instructions, follow-up care, medications, Prescriptions given X 1. 12:08 Patient left the ED. iw Signatures: Dispatcher [employer] EDMS John Ruiz MD MD cha Rod, Haley hr Eve Herrera, RN RN Inez Pierce RN RN
--- NOTE | 2018-10-28 11:47 | EDPHYS ---
Physician Documentation [facility] Name: Victoria Valentine Age: 33 yrs Sex: Female : 1985 Arrival Date: 10/28/2018 Time: 10:28 Bed 8 Private MD: ZHEN Physician John Ruiz HPI: 10/28 11:18 This 33 yrs old Female presents to ER via Ambulatory with complaints of ladonna and bleeding. 11:18 The patient presents with vaginal bleeding that is. Onset: The symptoms/episode ladonna began/occurred just prior to arrival, this morning. Modifying factors: The symptoms are alleviated by nothing, the symptoms are aggravated by nothing. Associated signs and symptoms: The patient has no apparent associated signs or symptoms. Severity of symptoms: At their worst the symptoms were mild, in the emergency department the symptoms are unchanged. The estimated gestational age is 6 weeks. 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 - Social history:: Smoking status: Patient/guardian denies using tobacco. - Ebola Screening: : No symptoms or risks identified at this time. - Family history:: not pertinent. ROS: 11:18 Constitutional: Negative for fever, chills, and weight loss, Eyes: Negative for injury, ladonna pain, redness, and discharge, ENT: Negative for injury, pain, and discharge, Neck: Negative for injury, pain, and swelling, Cardiovascular: Negative for chest pain, palpitations, and edema, Respiratory: Negative for shortness of breath, cough, wheezing, and pleuritic chest pain, Back: Negative for injury and pain, MS/Extremity: Negative for injury and deformity, Skin: Negative for injury, rash, and discoloration, Neuro: Negative for headache, weakness, numbness, tingling, and seizure, Psych: Negative for depression, anxiety, suicide ideation, homicidal ideation, and hallucinations, Allergy/Immunology: Negative for hives, rash, and allergies, Endocrine: Negative for neck swelling, polydipsia, polyuria, polyphagia, and marked weight changes, Hematologic/Lymphatic: Negative for swollen nodes, abnormal bleeding, and unusual bruising. 11:18 Abdomen/GI: Positive for abdominal cramps. 11:18 : Positive for vaginal bleeding. Exam: 11:18 Constitutional: This is a well developed, well nourished patient who is awake, alert, ladonna and in no acute distress. Head/Face: Normocephalic, atraumatic. Eyes: Pupils equal round and reactive to light, extra-ocular motions intact. Lids and lashes normal. Conjunctiva and sclera are non-icteric and not injected. Cornea within normal limits. Periorbital areas with no swelling, redness, or edema. Neck: Trachea midline, no thyromegaly or masses palpated, and no cervical lymphadenopathy. Supple, full range of motion without nuchal rigidity, or vertebral point tenderness. No Meningismus. Chest/axilla: Normal chest wall appearance and motion. Nontender with no deformity. No lesions are appreciated. Cardiovascular: Regular rate and rhythm with a normal S1 and S2. No gallops, murmurs, or rubs. Normal PMI, no JVD. No pulse deficits. Respiratory: Lungs have equal breath sounds bilaterally, clear to auscultation and percussion. No rales, rhonchi or wheezes noted. No increased work of breathing, no retractions or nasal flaring. Abdomen/GI: Soft, non-tender, with normal bowel sounds. No distension or tympany. No guarding or rebound. No evidence of tenderness throughout. Back: No spinal tenderness. No costovertebral tenderness. Full range of motion. Skin: Warm, dry with normal turgor. Normal color with no rashes, no lesions, and no evidence of cellulitis. MS/ Extremity: Pulses equal, no cyanosis. Neurovascular intact. Full, normal range of motion. Neuro: Awake and alert, GCS 15, oriented to person, place, time, and situation. Cranial nerves II-XII grossly intact. Motor strength 5/5 in all extremities. Sensory grossly intact. Cerebellar exam normal. Normal gait. Psych: Awake, alert, with orientation to person, place and time. Behavior, mood, and affect are within normal limits. 11:18 ENT: Exam is negative for 11:18 Abdomen/GI: Inspection: abdomen appears normal, Bowel sounds: normal, Palpation: abdomen is soft and non-tender, Liver: no appreciated palpable abnormalities, Hernia: not appreciated. Vital Signs: 10:39 BP 126 / 85; Pulse 64; Resp 18; Temp 98.5; Pulse Ox 100% on R/A; Weight 40.82 kg; ph Height 5 ft. 6 in. (167.64 cm); 11:35 BP 118 / 78; Pulse 62; Resp 18; Temp 97.8; Pulse Ox 99% on R/A; Pain 0/10; ph 10:39 Body Mass Index 14.53 (40.82 kg, 167.64 cm) ph MDM: 10:45 Patient medically screened. [facility] 11:25 Data reviewed: vital signs, nurses notes, lab test result(s), radiologic studies, ladonna ultrasound. 10/28 10:43 Order name: Quantitative Hcg; Complete Time: 11:45 ph 10/28 10:43 Order name: Abo/rh Typing; Complete Time: 11:45 ph 10/28 10:43 Order name: Basic Metabolic Panel; Complete Time: 11:45 ph 10/28 10:43 Order name: CBC with Diff; Complete Time: 11:25 ph 10/28 10:53 Order name: Urine Dipstick--Ancillary (enter results) bd 10/28 10:53 Order name: Urine --Ancillary (enter results) bd 10/28 10:43 Order name: Urine Test (obtain specimen); Complete Time: 11:08 ph 10/28 10:43 Order name: IV Saline Lock; Complete Time: 11:08 ph 10/28 10:43 Order name: Labs collected and sent; Complete Time: 11:08 ph 10/28 10:43 Order name: NPO; Complete Time: 11:08 ph 10/28 10:43 Order name: Urine Dipstick-Ancillary (obtain specimen); Complete Time: 11:08 ph 10/28 10:46 Order name: US Transvaginal Ob; Complete Time: 11:45 ladonna 10/28 11:45 Order name: PO challenge: juice; Complete Time: 11:54 ladonna Administered Medications: 11:00 Drug: NS 0.9% 1000 ml Route: IV; Rate: 1 bolus; Site: right antecubital; ph 12:00 Follow up: Response: No adverse reaction; IV Status: Completed infusion ph Disposition: 10/28/18 11:46 Discharged to Home. Impression: Threatened , Hypokalemia. - Condition is Stable. - Discharge Instructions: Potassium Content of Foods, Threatened Miscarriage, Vaginal Bleeding During , First Trimester, First Trimester of , [id number], First Trimester of , Threatened Miscarriage, [id number], Pelvic Rest, Hypokalemia. - Prescriptions for Vitamin 27- 0.8 mg Oral Tablet - take 1 tablet by ORAL route once daily; 30 tablet. - Medication Reconciliation Form, Thank You Letter, Antibiotic Education, Prescription Opioid Use form. - Follow up: Private Physician; When: 2 - 3 days; Reason: Recheck today's complaints, Continuance of care, Re-evaluation by your physician. Follow up: Mini Rekhi; When: 2 - 3 days; Reason: Recheck today's complaints, Continuance of care, Re-evaluation by your physician. - Problem is new. - Symptoms have improved. Signatures: Dispatcher [employer] EDJohn Schaefer MD MD cha Williams, Irene, RN RN iw Inez Pierce RN RN ph Corrections: (The following items were deleted from the chart) 12:08 11:46 10/28/2018 11:46 Discharged to Home. Impression: Threatened ; iw Hypokalemia. Condition is Stable. Discharge Instructions: Threatened Miscarriage, Vaginal Bleeding During , First Trimester, First Trimester of , [id number], First Trimester of , Threatened Miscarriage, [id number], Pelvic Rest. Prescriptions for Vitamin 27-0.8 mg Oral Tablet - take 1 tablet by ORAL route once daily; 30 tablet. and Forms are Medication Reconciliation Form, Thank You Letter, Antibiotic Education, Prescription Opioid Use. Follow up: Private Physician; When: 2 - 3 days; Reason: Recheck today's complaints, Continuance of care, Re-evaluation by your physician. Follow up: Mini Rekhi; When: 2 - 3 days; Reason: Recheck today's complaints, Continuance of care, Re-evaluation by your physician. Problem is new. Symptoms have improved. ladonna
[2018-10-28 12:03] LABS: Urine Blood TRACE (NEG); Urine Glucose NEGATIVE (NEG); Urine Protein NEGATIVE (NEG)
[2018-10-28 12:28] VITALS: BP 126/85; TEMP 98.5; O2SAT 100
== END 2018-10-28 12:08 | disposition home or self-care (01) ==
LOC: ER 10:25
DX: O20.0 Threatened abortion (principal); E87.6 Hypokalemia; Z3A.01 Less than 8 weeks gestation of pregnancy
CPT/HCPCS: 36415; 76817; 80048; 81003; 81025; 84702; 85025; 86900; 86901; 96360; 99284; J7030

== ENCOUNTER 2018-11-06 10:19 | Emergency (ER) | payer OTHER ==
[2018-11-06 10:45] LABS: Absolute Lymphocytes (CBC) 1.1 K/uL (0.7-4.9); Absolute Monocytes 0.4 K/uL (0.1-1.3); Absolute Neutrophil 2.8 K/uL (1.8-8.0); Basophils % 0.6 % (0-1.3); Eosinophils % 1.2 % (0-4.4); Hematocrit 37.5 % (36.0-45.0); Lymphocytes % 24.4 % (15.3-44.8); MPV 7.5 fL (7.6-11.3); Monocytes % 9.3 % (3.3-12.3); RBC Red Blood Cell Count 4.68 M/uL (3.86-4.86)
[2018-11-06 11:03] LABS: Potassium 3.9 mmol/L (3.5-5.1)
[2018-11-06] MEDS ORDERED: NA CHLORIDE 0.9% 500 ML ONE (11:25)
[2018-11-06 12:03] LABS: Urine Blood NEGATIVE (NEG); Urine Glucose NEGATIVE (NEG); Urine Protein NEGATIVE (NEG); Urine Specific Gravity <1.005 (1.005-1.030); Urine pH 5.5 (5.0-7.0)
--- NOTE | 2018-11-06 12:17 | ER ---
Nurse's Notes [facility] Name: Victoria Valentine Age: 33 yrs Sex: Female : 1985 Arrival Date: 11/06/2018 Time: 10:21 Bed 18 Private MD: Ranjan Wynne R Diagnosis: Ectopic , unspecified Presentation: 11/06 10:31 Presenting complaint: Patient states: SENT BY OB DR PHILIPPE FOR FLUCTUANT HCG LEVELS AND bp VAG BLEEDING. Transition of care: patient was not received from another setting of care. Onset of symptoms is unknown. Risk Assessment: Do you want to hurt yourself or someone else? Patient reports no desire to harm self or others. Initial Sepsis Screen: Does the patient meet any 2 criteria? No. Patient's initial sepsis screen is negative. Does the patient have a suspected source of infection? No. Patient's initial sepsis screen is negative. Care prior to arrival: None. 10:31 Method Of Arrival: Ambulatory bp 10:31 Acuity: JESSIE 3 bp Triage Assessment: 10:32 General: Appears in no apparent distress. comfortable, slender, Behavior is bp cooperative, appropriate for age, anxious. Pain: Denies pain. EENT: No deficits noted. Neuro: Level of Consciousness is awake, alert, obeys commands, Oriented to person, place, time, situation, Appropriate for age. Cardiovascular: No deficits noted. Respiratory: Reports Airway is patent Respiratory effort is even, unlabored, Respiratory pattern is regular, symmetrical. GI: No signs and/or symptoms were reported involving the gastrointestinal system. : Reports vaginal bleeding that is. Derm: No deficits noted. Musculoskeletal: Circulation, motion, and sensation intact. Range of motion: intact in all extremities. 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 - Social history:: Smoking status: unknown. - Ebola Screening: : No symptoms or risks identified at this time. Screenin:05 Abuse screen: Denies threats or abuse. Denies injuries from another. Nutritional bp screening: No deficits noted. Tuberculosis screening: No symptoms or risk factors identified. Fall Risk None identified. Assessment: 10:31 Obstetrical Assessment: General assessment: awake and alert, skin warm and dry, Patient bp reports VAG BLEEDING. General: SEE TRIAGE NOTE. 11:46 Reassessment: PT TO U/S. bp 12:01 Reassessment: PT RETURNED FROM U/S. bp 12:58 Reassessment: PT D/C HOME AMBULATORY, DX WITH ECTOPIC . bp Vital Signs: 10:32 BP 139 / 69; Pulse 82; Resp 16; Temp 98; Pulse Ox 98% ; Weight 41.73 kg; Height 5 ft. 6 bp in. (167.64 cm); 10:32 Body Mass Index 14.85 (41.73 kg, 167.64 cm) bp ED Course: 10:20 John Ruiz MD is Attending Physician. ladonna 10:21 Patient arrived in ED. rg4 10:21 Ranjan Wynne MD is Private Physician. rg4 10:30 Weston Murphy, SMILEY is Primary Nurse. bp 10:31 Triage completed. bp 11:02 Quantitative Hcg Sent. bp 11:04 Inserted saline lock: 22 gauge in right forearm, using aseptic technique. bp 11:04 Arm band placed on. bp 11:05 Patient has correct armband on for positive identification. Bed in low position. Call bp light in reach. Side rails up X2. Adult w/ patient. 11:46 US Transvaginal Ob Sent. bp 12:16 Valentina Philippe MD is Referral Physician. ladonna 12:24 US Transvaginal Ob In Process Unspecified. EDMS 12:59 No provider procedures requiring assistance completed. IV discontinued, intact, bp bleeding controlled, No redness/swelling at site. Pressure dressing applied. Administered Medications: 11:05 Drug: NS 0.9% 500 ml Route: IV; Rate: bolus; Site: right forearm; bp 11:05 Drug: NS 0.9% 1000 ml Route: IV; Rate: 125 ml/hr; Site: right forearm; bp Outcome: 12:16 Discharge ordered by . ladonna 12:59 Discharged to home ambulatory, with family. bp 12:59 Condition: stable 12:59 Discharge instructions given to patient, Instructed on discharge instructions, follow up and referral plans. Demonstrated understanding of instructions, follow-up care. 13:00 Patient left the ED. bp Signatures: Dispatcher [employer] John Gonzalez MD MD cha Garcia, Rubi rg4 Weston Murphy, RN RN bp
--- NOTE | 2018-11-06 12:17 | EDPHYS ---
Physician Documentation [facility] Name: Victoria Valentine Age: 33 yrs Sex: Female : 1985 Arrival Date: 11/06/2018 Time: 10:21 Bed 18 Private MD: Ranjan Wynne R ED Physician John Ruiz HPI: 11/06 10:50 This 33 yrs old Female presents to ER via Ambulatory with complaints of ladonna Vaginal Bleeding, + Preg <12wks. 10:50 The patient presents to the emergency department with abdominal pain, of the right ladonna lower quadrant and left lower quadrant, vaginal bleeding. The estimated gestational age is 4 weeks. 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 - Social history:: Smoking status: unknown. - Ebola Screening: : No symptoms or risks identified at this time. ROS: 10:51 Constitutional: Negative for fever, chills, and weight loss, Eyes: Negative for injury, ladonna pain, redness, and discharge, ENT: Negative for injury, pain, and discharge, Neck: Negative for injury, pain, and swelling, Cardiovascular: Negative for chest pain, palpitations, and edema, Respiratory: Negative for shortness of breath, cough, wheezing, and pleuritic chest pain, Back: Negative for injury and pain, MS/Extremity: Negative for injury and deformity, Skin: Negative for injury, rash, and discoloration, Neuro: Negative for headache, weakness, numbness, tingling, and seizure, Psych: Negative for depression, anxiety, suicide ideation, homicidal ideation, and hallucinations, Allergy/Immunology: Negative for hives, rash, and allergies, Endocrine: Negative for neck swelling, polydipsia, polyuria, polyphagia, and marked weight changes, Hematologic/Lymphatic: Negative for swollen nodes, abnormal bleeding, and unusual bruising. 10:51 Respiratory: Positive for 10:51 Abdomen/GI: Positive for abdominal pain, of the suprapubic area, right lower quadrant and left lower quadrant. 10:51 : Positive for vaginal bleeding. Exam: 10:51 Constitutional: This is a well developed, well nourished patient who is awake, alert, ladonna and in no acute distress. Head/Face: Normocephalic, atraumatic. Eyes: Pupils equal round and reactive to light, extra-ocular motions intact. Lids and lashes normal. Conjunctiva and sclera are non-icteric and not injected. Cornea within normal limits. Periorbital areas with no swelling, redness, or edema. ENT: Nares patent. No nasal discharge, no septal abnormalities noted. Tympanic membranes are normal and external auditory canals are clear. Oropharynx with no redness, swelling, or masses, exudates, or evidence of obstruction, uvula midline. Mucous membranes moist. Neck: Trachea midline, no thyromegaly or masses palpated, and no cervical lymphadenopathy. Supple, full range of motion without nuchal rigidity, or vertebral point tenderness. No Meningismus. Chest/axilla: Normal chest wall appearance and motion. Nontender with no deformity. No lesions are appreciated. Cardiovascular: Regular rate and rhythm with a normal S1 and S2. No gallops, murmurs, or rubs. Normal PMI, no JVD. No pulse deficits. Respiratory: Lungs have equal breath sounds bilaterally, clear to auscultation and percussion. No rales, rhonchi or wheezes noted. No increased work of breathing, no retractions or nasal flaring. Abdomen/GI: Soft, non-tender, with normal bowel sounds. No distension or tympany. No guarding or rebound. No evidence of tenderness throughout. Back: No spinal tenderness. No costovertebral tenderness. Full range of motion. Skin: Warm, dry with normal turgor. Normal color with no rashes, no lesions, and no evidence of cellulitis. MS/ Extremity: Pulses equal, no cyanosis. Neurovascular intact. Full, normal range of motion. Neuro: Awake and alert, GCS 15, oriented to person, place, time, and situation. Cranial nerves II-XII grossly intact. Motor strength 5/5 in all extremities. Sensory grossly intact. Cerebellar exam normal. Normal gait. Psych: Awake, alert, with orientation to person, place and time. Behavior, mood, and affect are within normal limits. Vital Signs: 10:32 BP 139 / 69; Pulse 82; Resp 16; Temp 98; Pulse Ox 98% ; Weight 41.73 kg; Height 5 ft. 6 bp in. (167.64 cm); 10:32 Body Mass Index 14.85 (41.73 kg, 167.64 cm) bp MDM: 10:20 Patient medically screened. [facility] 10:52 Data reviewed: vital signs, nurses notes, lab test result(s), radiologic studies, [facility] ultrasound. 11/06 10:23 Order name: Quantitative Hcg [facility] 11/06 10:23 Order name: Basic Metabolic Panel; Complete Time: 11:29 [facility] 11/06 10:23 Order name: CBC with Diff; Complete Time: 11:29 [facility] 11/06 10:23 Order name: US Transvaginal Ob [facility] 11/06 10:24 Order name: HCG, Quantitative; Complete Time: 11:29 EDMS 11/06 10:57 Order name: Urine Dipstick--Ancillary (enter results); Complete Time: 12:09 ms 11/06 10:23 Order name: Urine Test (obtain specimen); Complete Time: 11: [facility] 11/06 10:23 Order name: IV Saline Lock; Complete Time: 11: [facility] 11/06 10:23 Order name: Labs collected and sent; Complete Time: 10:41 [facility] 11/06 10:23 Order name: NPO; Complete Time: 11: [facility] 11/06 10:23 Order name: Urine Dipstick-Ancillary (obtain specimen); Complete Time: 11:02 [facility] 11/06 11:33 Order name: PO challenge: juice; Complete Time: 11:46 [facility] Administered Medications: 11:05 Drug: NS 0.9% 500 ml Route: IV; Rate: bolus; Site: right forearm; bp 11:05 Drug: NS 0.9% 1000 ml Route: IV; Rate: 125 ml/hr; Site: right forearm; bp Disposition: 11/06/18 12:16 Discharged to Home. Impression: Ectopic , unspecified. - Condition is Stable. - Discharge Instructions: Ectopic , Methotrexate Treatment for an Ectopic , Ectopic , [id number]. - Medication Reconciliation Form, Thank You Letter, Antibiotic Education, Prescription Opioid Use form. - Follow up: Mini Rekhi; When: 1 - 2 days; Reason: Recheck today's complaints, Continuance of care, Re-evaluation by your physician. - Problem is new. - Symptoms have improved. Signatures: Dispatcher [employer] John Gonzalez MD MD cha Peltier, Brian, RN RN bp Corrections: (The following items were deleted from the chart) 13:00 12:16 11/06/2018 12:16 Discharged to Home. Impression: Ectopic , unspecified. bp Condition is Stable. Discharge Instructions: Ectopic , Methotrexate Treatment for an Ectopic , Ectopic , [id number]. Forms are Medication Reconciliation Form, Thank You Letter, Antibiotic Education, Prescription Opioid Use. Follow up: Mini Rekhi; When: 1 - 2 days; Reason: Recheck today's complaints, Continuance of care, Re-evaluation by your physician. Problem is new. Symptoms have improved. ladonna
--- NOTE | 2018-11-06 12:54 | RAD REPORT ---
EXAM DESCRIPTION: US - Transvaginal OB - 11/06/2018 12:23 pm CLINICAL HISTORY: Abdominal pain, vaginal bleeding, , variable beta HCG values previously i n the 800s now decreased to 441. COMPARISON: None. TECHNIQUE: Endovaginal sonography performed. FINDINGS: Uterus is normal size measuring 7.8 x 4.5 x 5.7 cm. No myometrial mass identifiable. Endom etrial stripe is 3 mm. No gestational sac or sac remnant identified. No intrauterine hematoma or othe r mass lesion. Minimal quantity of free fluid in the cul de sac. This has the appearance of fluid rather than blood. Left ovary and left adnexa show no suspicious findings. Right ovary shows no suspicious finding. There is an approximately 2.9 centimeter area of echogenicit y adjacent to the ovary. This does not have an appearance typical for ectopic. This is a potentially a hemorrhagic cyst. IMPRESSION: No intrauterine gestational sac or sac remnant. No intrauterine hematoma or mass. There is an echogenic mass adjacent to the right ovary. In the setting of a positive test for pregnan cy, ectopic cannot be excluded this but is felt to be unlikely. Repeat imaging could be performed if the patient has rising beta HCG values.
[2018-11-06 13:09] VITALS: BP 139/69; TEMP 98; O2SAT 98
== END 2018-11-06 13:00 | disposition home or self-care (01) ==
LOC: ER 10:19
DX: O00.90 Unspecified ectopic pregnancy without intrauterine pregnancy (principal); Z3A.01 Less than 8 weeks gestation of pregnancy
CPT/HCPCS: 36415; 76817; 80048; 81003; 84702; 85025; 99284

== ENCOUNTER 2019-09-03 04:45 | Inpatient (IN) | payer OTHER ==
[2019-09-03] MEDS ORDERED: MIDAZOLAM HCL 2 MG/2 ML INJ IV PRN (05:09)
[2019-09-03] MEDS ORDERED: Ringers Lactate 1,000 ML IV PRN (05:09)
[2019-09-03] MEDS ORDERED: BUTORPHANOL 1 MG/ML INJ IV PRN (05:09)
[2019-09-03] MEDS ORDERED: METHYLERGONOVINE 0.2MG/ML AMP IM PRN (05:09)
[2019-09-03] MEDS ORDERED: CARBOPROST TROME 250 MCG/ML IM PRN (05:09)
[2019-09-03] MEDS ORDERED: MEPERIDINE HCL 25 MG/0.5 ML IV PRN (05:09)
[2019-09-03] MEDS ORDERED: PROMETHAZINE INJ 25 MG/ML AMP IM PRN (05:09)
[2019-09-03] MEDS ORDERED: OXYTOCIN/LR 20 UNIT/1,000 ML BAG IV SCH ×2 (05:30→10:00)
[2019-09-03 05:44] LABS: Urine Appearance CLEAR; Urine Bilirubin NEGATIVE (NEG); Urine Blood NEGATIVE (NEG); Urine Color YELLOW; Urine Glucose NEGATIVE (NEG); Urine Protein NEGATIVE (NEG); Urine Specific Gravity 1.025 (1.005-1.030); Urine Urobilinogen 0.2 mg/dL (0.2-1.0); Urine pH 6.5 (5.0-7.0)
[2019-09-03 05:48] LABS: Urine Microscopic Reflex ORDER UMIC
[2019-09-03 05:50] VITALS: BMI 20.3
[2019-09-03 05:56] LABS: Absolute Lymphocytes (CBC) 1.4 K/uL (0.7-4.9); Basophils % 0.4 % (0-1.3); Hematocrit 31.1 % (36.0-45.0); Lymphocytes % 22.7 % (15.3-44.8); MPV 8.1 fL (7.6-11.3); RBC Red Blood Cell Count 3.95 M/uL (3.86-4.86)
[2019-09-03 05:58] LABS: Urine Bacteria 20-50 /HPF (<20); Urine Culture Reflex Order REFLEXED; Urine RBC NONE SEEN /HPF (NONE SEEN); Urine Urothelial Cells <5 /HPF (NONE SEEN)
[2019-09-03] MEDS ORDERED: Ringers Lactate 1,000 ML IV SCH (06:00)
[2019-09-03] MEDS ORDERED: LIDOCAINE 1% MPF 30 ML VIAL ONE (08:23)
[2019-09-03] MEDS ORDERED: LIDOCAINE 1% 20 ML MDV ONE (08:46)
[2019-09-03] MEDS ORDERED: METHYLERGONOVINE 0.2MG/ML AMP IM ONE (08:47)
[2019-09-03] MEDS ORDERED: CARBOPROST TROME 250 MCG/ML IM ONE (08:47)
--- NOTE | 2019-09-03 09:02 | PREOPHP ---
Date of Admission: 09/03/2019 34-year-old 4, para 2, 39 weeks' gestation, Rh positive. Immune to Rubella. Negative beta s trep screen, 3 cm, 50 to 60% effaced, vertex, well applied. Rupture of membranes, clear fluid. Cont racting regularly. Anticipate more rapid labor. Labor talk given. Patient states that once she get s to 5 cm she usually progresses quite rapidly thereafter. Anticipate delivery relatively soon. EFRAÍN/JESUS Voice ID: [id number]
[2019-09-03] MEDS ORDERED: ACETAMINOPHEN 500 MG TAB PO PRN (09:27)
[2019-09-03] MEDS ORDERED: Oxycodone HCl/Acetaminophen 1 TAB TAB PO PRN ×2 (09:27)
[2019-09-03] MEDS ORDERED: DIPHENHYDRAMINE 25 MG TAB/CAP PO PRN (09:27)
[2019-09-03] MEDS ORDERED: BISACODYL 10 MG RECTAL SUPP PR PRN (09:27)
[2019-09-03] MEDS ORDERED: DOCUSATE NA/SENNA CONC 1 TAB PO PRN (09:27)
[2019-09-03] MEDS ORDERED: IBUPROFEN 600 MG TAB PO PRN (09:27)
--- NOTE | 2019-09-03 09:50 | OP ---
Surgeon: Evangelista Hernandez MD 34-year-old 4, para 3, AB 1, 39 weeks. Rupture of membranes at approximately 3 cm, clear flu id, went into an active labor pattern. 1 mg of Stadol IV. After achieving 7 cm, went to complete ra pidly, second stage of about 25 minutes. Spontaneous vaginal delivery of an estimated 7-pound male, Apgars 9 and 9. Baby rotated from occiput posterior to anterior and then delivered quickly after rot ation. Small first-degree laceration repaired with 2-0 chromic under local infiltration. John pardo of the placenta, which was inspected and noted to be intact and normal. Less than 300 cc blo od loss. Rh positive, immune to Rubella. Negative beta strep screen. Tolerated all procedures well . Final Diagnoses: Term intrauterine . Spontaneous vaginal delivery. EFRAÍN/JESUS Voice ID: [id number] Report ID: [id number]
[2019-09-04 05:08] VITALS: TEMP 97.6
[2019-09-04 08:29] VITALS: BP 133/71
[2019-09-04] MEDS ORDERED: Tdap (Diph,Pertuss(Acell),Tet Vac) 0.5 ML SYR IMVAC ONE (11:12)
[2019-09-04 21:22] LABS: RPR (Rapid Plasma Reagin) NON-REACT (NON-REACT)
[2019-09-06 20:34] LABS: HBsAG Nonreactive (Nonreactive)
--- NOTE | 2019-09-07 06:02 | DS ---
Date of Discharge: 09/04/2019 Hospital Course: Victoria Valentine is a 34-year-old 4, para 2, at 39 weeks, delivered an estima dustin 7-pound male , Apgars 9 and 9. Small first-degree laceration repaired with 2-0 chromic und er local infiltration. Schultze delivery of the placenta. Estimated blood loss 300 mL or less. Rh positive, immune to Rubella. Negative beta strep screen. , afebrile, ambulating and voidi ng. Lochia is normal. Will be dismissed later today to report back to my office in 6 weeks for foll owup, to report any temperature elevation of 100 degrees or greater, severe pain, heavy bleeding, or any other type of abnormalities. Tdap immunization offered during her and again. Motrin f or analgesia. Final Diagnoses: Term intrauterine at 39 weeks, vaginal delivery. EFRAÍN/JESUS Voice ID: [id number] Report ID: [id number]
== END 2019-09-04 11:55 | disposition home or self-care (01) | DRG 807 ==
LOC: 2ND-WC 04:45
PROVIDERS: ADMIT Specialist; ATTEND Specialist
PROC: 10E0XZZ Delivery of Products of Conception, External Approach (ICD-10-PCS; principal; 2019-09-03)
PROC: 10907ZC Drainage of Amniotic Fluid, Therapeutic from Products of Conception, Via Natural or Artificial Opening (ICD-10-PCS; 2019-09-03)
PROC: 0HQ9XZZ Repair Perineum Skin, External Approach (ICD-10-PCS; 2019-09-03)
DX: O70.0 First degree perineal laceration during delivery (principal); Z37.0 Single live birth; Z3A.39 39 weeks gestation of pregnancy
CPT/HCPCS: 36415; 81003; 81015; 85025; 86592; 86901; 87086; 87088; 87340; 90471; 90715; J0595; J2175; J2210; J2250; J2550; J2590; J7120

== ENCOUNTER 2021-05-21 15:01 | Inpatient (IN) | payer OTHER ==
[2021-05-21] MEDS ORDERED: CARBOPROST TROME 250 MCG/ML IM PRN (15:03)
[2021-05-21] MEDS ORDERED: PROMETHAZINE INJ 25 MG/ML AMP IM PRN (15:03)
[2021-05-21] MEDS ORDERED: PENICILLIN 5 MU in NA CHLORIDE 0.9% 100 ML IV ONE (15:03)
[2021-05-21] MEDS ORDERED: BUTORPHANOL 1 MG/ML INJ IV PRN (15:03)
[2021-05-21] MEDS ORDERED: Ringers Lactate 1,000 ML IV PRN (15:03)
[2021-05-21] MEDS ORDERED: METHYLERGONOVINE 0.2MG/ML AMP IM PRN (15:03)
[2021-05-21 15:48] LABS: Absolute Lymphocytes (CBC) 1.3 K/uL (0.7-4.9); Hematocrit 34.3 % (36.0-45.0); Lymphocytes % 17.5 % (15.3-44.8); MPV 7.7 fL (7.6-11.3); RBC Red Blood Cell Count 4.06 M/uL (3.86-4.86)
[2021-05-21 15:51] VITALS: BMI 20.6
[2021-05-21] MEDS ORDERED: OXYTOCIN/LR 20 UNIT/1,000 ML BAG IV SCH ×2 (16:00→19:00)
[2021-05-21] MEDS ORDERED: Ringers Lactate 1,000 ML IV SCH (16:00)
[2021-05-21 16:52] LABS: Urine Appearance CLEAR (Clear); Urine Bilirubin NEGATIVE (Negative); Urine Blood NEGATIVE (Negative); Urine Color DK YELLOW (Yellow); Urine Glucose NEGATIVE (Negative); Urine Protein NEGATIVE (Negative)
[2021-05-21 16:58] LABS: Urine Microscopic Reflex ORDER UMIC
[2021-05-21 17:05] LABS: Urine Bacteria 20-50 /HPF (<20); Urine RBC <5 /HPF (NONE SEEN)
[2021-05-21] MEDS ORDERED: LIDOCAINE 1% 20 ML MDV ONE (18:15)
[2021-05-21] MEDS ORDERED: IBUPROFEN 600 MG TAB PO PRN (18:31)
[2021-05-21] MEDS ORDERED: DOCUSATE NA/SENNA CONC 1 TAB PO PRN (18:31)
[2021-05-21] MEDS ORDERED: DIPHENHYDRAMINE 25 MG TAB/CAP PO PRN (18:31)
[2021-05-21] MEDS ORDERED: BISACODYL 10 MG RECTAL SUPP PR PRN (18:31)
[2021-05-21] MEDS ORDERED: ACETAMINOPHEN 500 MG TAB PO PRN (18:31)
[2021-05-21] MEDS ORDERED: Oxycodone HCl/Acetaminophen 1 TAB TAB PO PRN ×2 (18:31)
[2021-05-21] MEDS ORDERED: PENICILLIN 2.5 MU in NA CHLORIDE 0.9% 100 ML IV SCH (20:00)
--- NOTE | 2021-05-21 23:08 | PREOPHP ---
Date of Admission: 05/21/2021 Subjective: 35-year-old 5, para 3, 39 weeks, scheduled to be induced tomorrow, comes in, con tracting regularly, noted to be 2 to 2.5 cm vertex, Strep positive. Has had her first dose of antibi otics more than 1 hour ago. FHTs look normal, reactive. Vital signs are all stable ruptured membran es. The patient is now 2.5 cm, 50% effaced. Significant amount of fluid obtained, all clear. Antici pated more active progress, once she gets 3 to 4 cm and more effaced. Labor talk given. Family History: Noncontributory. The patient has had a kidney stone in the past. She has no other relevant past medical history. Medical Allergy: She is not allergic to anything. Rh positive, immune to rubella. Positive strep. Negative HIV. COVID testing pending. She states her parents have COVID. Objective: HEENT: Clear. Pupils equal, round, reactive to light and accommodation. Conjunctivae we ll perfused. No oral, lingual, or buccal lesions. CHEST: Lungs clear. HEART: Without murmurs, thrills, heaves, or rubs. BREASTS: Not examined but negative for problems on previous visits. ABDOMEN: Term. EXTREMITIES: Clear without edema, cyanosis, or clubbing. Admit for augmentation of labor. Penicillin prophylaxis and delivery. EFRAÍN/JESUS Voice ID: [id number]
--- NOTE | 2021-05-22 13:29 | OP ---
Surgeon: Evangelista Hernandez MD 35-year-old 5, para 3, 39 weeks, scheduled for induction tomorrow, came in early labor, contr acting every 2-3 minutes, was noted to be 2.5 cm, 50% vertex -1 station. Rupture of membranes. Zina r fluid. Vital signs all normal. The patient is beta strep positive. She was given penicillin 1 ho ur before Pitocin was started and about an hour and 15 to 20 minutes prior to rupture of membranes, s he went to a very active labor pattern, went from 4 cm to complete and on the perineum. Within 20 mi nutes or less, delivered precipitously but controlled of an estimated 7 pounds male infant, Apgars 9 and 9. Very small first-degree laceration, repaired with 2-0 chromic after local infiltration. Schu ltze delivery of the placenta inspected and noted to be intact and normal. Less than 300 cc blood lo ss. The patient tolerated all procedures well. Completely natural childbirth. Final Diagnoses: Term intrauterine 39 weeks, vaginal delivery, penicillin prophylaxis. EFRAÍN/JESUS Voice ID: [id number] Report ID: [id number]
[2021-05-22 18:24] LABS: RPR (Rapid Plasma Reagin) NON-REACT (NON-REACT)
[2021-05-22] MEDS ORDERED: Ringers Lactate 2,000 ML IV ONE (20:09)
[2021-05-22 21:17] VITALS: BP 130/82; TEMP 97
--- NOTE | 2021-05-23 01:56 | DS ---
Date of Discharge: 05/22/2021 Hospital Course: Mery Ruiz is a 35-year-old 5, para 3, 39 weeks gestation, scheduled to be induced today, came in early active rapidly advancing labor went from 4 cm to complete within 30-45 minutes, delivered spontaneously of a 7 pounds 7 ounce male infant Apgars 9 and 9. Very small first-degree laceration, repaired with 2-0 chromic under local infiltration. Schultze delivery of th e placenta. Less than 300 mL blood loss. One dose of penicillin given prior to delivery of the baby , she was strep positive. , afebrile, ambulating, voiding. Lochia is normal. Will be dis missed later today. To report back to my office in 6 weeks for followup, to report any temperature e levation of 100 degrees or greater, severe pain, heavy bleeding, or any other type of abnormality. I mmune to rubella and Rh positive. Offered Tdap, flu shot, and COVID immunizations have been all disc ussed. Final Diagnoses: Term intrauterine 39 weeks, vaginal delivery, penicillin prophylaxis. EFRAÍN/JESUS Voice ID: [id number] Report ID: [id number]
[2021-05-24 19:17] LABS: HBsAG Nonreactive (Nonreactive)
== END 2021-05-22 20:45 | disposition home or self-care (01) | DRG 807 ==
LOC: 2ND-WC 15:01
PROVIDERS: ADMIT Specialist; ATTEND Specialist
PROC: 10907ZC Drainage of Amniotic Fluid, Therapeutic from Products of Conception, Via Natural or Artificial Opening (ICD-10-PCS; principal; 2021-05-21)
PROC: 10E0XZZ Delivery of Products of Conception, External Approach (ICD-10-PCS; 2021-05-21)
PROC: 0HQ9XZZ Repair Perineum Skin, External Approach (ICD-10-PCS; 2021-05-21)
DX: O70.0 First degree perineal laceration during delivery (principal); Z37.0 Single live birth; O99.824 Streptococcus B carrier state complicating childbirth; Z3A.39 39 weeks gestation of pregnancy; Z20.822 Contact with and (suspected) exposure to COVID-19
CPT/HCPCS: 36415; 81003; 81015; 85025; 86592; 86901; 87086; 87088; 87340; J2210; J2540; J2590; J7120; U0003